=== PATIENT | female | born 2000 | race Caucasian/White ===

== ENCOUNTER 2020-04-29 18:30 | Emergency (ER) | payer BC ==
[2020-04-29] MEDS ORDERED: METOCLOPRAMIDE HCL INJ/PF 10 MG/2 ML SDV IV ONE (19:11)
[2020-04-29] MEDS ORDERED: DIPHENHYDRAMINE HCL 50 MG/ML VIAL IV ONE (19:12)
[2020-04-29] MEDS ORDERED: NORMAL SALINE 1000 ML 1,000 ML IV ONE (19:12)
--- NOTE | 2020-04-29 19:13 | ER Document Report ---
ED Medical Screen (RME) - General Chief Complaint: Nausea/Vomiting Stated Complaint: NAUSEA/DIZZYNESS/VOMITING/HEADACHE Time Seen by Provider: 04/29/20 19:03 - HPI Notes: 04/29/20 19:07 Patient is a 19-year-old female with past medical history of asthma here with complaint of nausea and vomiting. Reports her symptoms started a few days ago with associated loss of appetite, lightheadedness, fatigue, and malaise. She is sexually active and does not use any form of control. Last menstrual period was 1 month ago, they are generally pretty regular but she does not keep close track of her cycles. Denies any fever, cough, sore throat, vaginal bleeding, urinary symptoms. Abdomen is nontender to palpation on brief medical screening exam. I performed a brief medical screening exam on the patient determined that the patient needs further evaluation and management by main side provider. I have placed initial orders to help expedite care. - Related Data Allergies/Adverse Reactions: No Known Allergies Allergy (Unverified 04/29/20 18:59) Past Medical History - Social History Frequency of alcohol use: None Drug Abuse: None Physical Exam - Vital signs Vitals: Temp Pulse Resp BP Pulse Ox 98.3 F 86 18 123/83 99 04/29/20 18:36 04/29/20 18:36 04/29/20 18:36 04/29/20 18:36 04/29/20 18:36 Course - Vital Signs Vital signs: Temp Pulse Resp BP Pulse Ox 98.3 F 86 18 123/83 99 04/29/20 18:36 04/29/20 18:36 04/29/20 18:36 04/29/20 18:36 04/29/20 18:36
[2020-04-29 19:36] LABS: ABSOLUTE BASOPHILS # (AUTO) 0.2 10^3/uL (0.0-0.2); ABSOLUTE EOSINOPHILS # (AUTO) 0.7 10^3/uL (0.0-0.6); ABSOLUTE LYMPHOCYTES (AUTO) 2.3 10^3/uL (0.5-4.7); ABSOLUTE MONOCYTES (AUTO) 0.6 10^3/uL (0.1-1.4); ABSOLUTE NEUT (AUTO) 10.9 10^3/uL (1.7-8.2); BASOPHILS % (AUTO) 1.2 % (0-2); EOSINOPHILS % (AUTO) 4.9 % (0-6); HEMATOCRIT 42.3 % (36.0-47.0); HEMOGLOBIN 15.1 g/dL (12.0-15.5); LYMPHOCYTES % (AUTO) 15.4 % (13-45); MEAN CORPUSCULAR HEMOGLOBIN 29.4 pg (27.0-33.4); MEAN CORPUSCULAR HGB CONC 35.6 g/dL (32.0-36.0); MEAN CORPUSCULAR VOLUME 83 fl (80-97); MONOCYTES % (AUTO) 4.3 % (3-13); PLATELET COUNT 349 10^3/uL (150-450); RED BLOOD COUNT 5.13 10^6/uL (3.72-5.28); RED CELL DISTRIBUTION WIDTH 12.7 % (11.5-14.0); SEGMENTED NEUTROPHILS % (AUTO) 74.2 % (42-78); TOTAL CELLS COUNTED % (AUTO) 100 %; WHITE BLOOD COUNT 14.7 10^3/uL (4.0-10.5)
[2020-04-29 19:44] LABS: APPEARANCE,URINE CLEAR; BILIRUBIN,URINE NEGATIVE (NEGATIVE); COLOR,URINE STRAW; GLUCOSE, URINE NEGATIVE (NEGATIVE); KETONES,URINE NEGATIVE (NEGATIVE); PROTEIN,URINE NEGATIVE (NEGATIVE); URINE SPECIFIC GRAVITY 1.005; UROBILINOGEN,URINE NEGATIVE mg/dL (<2.0)
[2020-04-29 19:49] LABS: ALBUMIN 4.9 g/dL (3.5-5.0); ALKALINE PHOSPHATASE 85 U/L (38-126); ANION GAP 13 (5-19); ASPARTATE AMINO TRANSFERASE 25 U/L (14-36); BILIRUBIN,TOTAL 0.9 mg/dL (0.2-1.3); BLOOD UREA NITROGEN 9 mg/dL (7-20); CARBON DIOXIDE 26 mmol/L (22-30); CHLORIDE 100 mmol/L (98-107); GLUCOSE 87 mg/dL (75-110); POTASSIUM 4.4 mmol/L (3.6-5.0); TOTAL PROTEIN 8.1 g/dL (6.3-8.2)
--- NOTE | 2020-04-29 23:22 | ER Document Report ---
ED General - General Chief Complaint: Nausea/Vomiting Stated Complaint: NAUSEA/DIZZYNESS/VOMITING/HEADACHE Time Seen by Provider: 04/29/20 19:03 Notes: Patient is a 19-year-old female that comes emergency department for chief complaint of intermittent headaches, nausea, vomiting, and symptoms are also worse after eating. She states she has been having all of these symptoms for the past several days. She denies any abdominal pain, she denies abdominal pain with eating she is does states she gets nauseated after she eats. She does admit to tightness in her upper neck with the intermittent headaches. She denies head injury, neck injury, focal numbness or weakness, current headache, fever/chills. She states that she was tested for COVID-19 at work because "all of the employees were tested", she denies any COVID-19 symptoms or exposures. She has a history of asthma and is treated for this, she takes regular ibuprofen and Excedrin for her headaches, she denies medications otherwise. LMP within the past month. She is sexually active with her significant other, denies vaginal bleeding or discharge, dysuria, flank pain. - Related Data Allergies/Adverse Reactions: No Known Allergies Allergy (Unverified 04/29/20 18:59) Past Medical History - General Information source: Patient - Social History Smoking Status: Never Smoker Frequency of alcohol use: None Drug Abuse: None Lives with: Family Family History: Reviewed & Not Pertinent Patient has homicidal ideation: No Surgical Hx: Negative - Immunizations Immunizations up to date: Yes Hx Diphtheria, Pertussis, Tetanus Vaccination: Yes Review of Systems - Review of Systems Constitutional: See HPI EENT: No symptoms reported Cardiovascular: No symptoms reported Respiratory: No symptoms reported Gastrointestinal: See HPI Genitourinary: No symptoms reported Female Genitourinary: No symptoms reported Musculoskeletal: No symptoms reported Skin: No symptoms reported Hematologic/Lymphatic: No symptoms reported Neurological/Psychological: See HPI Physical Exam - Vital signs Vitals: Temp Pulse Resp BP Pulse Ox 98.3 F 86 18 123/83 99 04/29/20 18:36 04/29/20 18:36 04/29/20 18:36 04/29/20 18:36 04/29/20 18:36 - Notes Notes: GENERAL: Alert, interacts well. No acute distress. HEAD: Normocephalic, atraumatic. EYES: Pupils equal, round, and reactive to light. Extraocular movements intact. ENT: Oral mucosa moist, tongue midline. Oropharynx unremarkable. Airway patent. NECK: Full range of motion. Supple. Trachea midline. No lymphadenopathy. LUNGS: Clear to auscultation bilaterally, no wheezes, rales, or rhonchi. No respiratory distress. Non-tender chest wall. HEART: Regular rate and rhythm. No murmur ABDOMEN: Soft, non-tender. Non-distended. Bowel sounds present in all 4 quadrants. GENITOURINARY: Deferred EXTREMITIES: Moves all 4 extremities spontaneously. No edema, normal radial and dorsalis pedis pulses bilaterally. No cyanosis. BACK: There is some tenderness in the paracervical musculature bilaterally and worse on the left extending into the trapezius muscle. No cervical, thoracic, lumbar midline tenderness. No saddle anesthesia, normal distal neurovascular exam. Moves all extremities in full range of motion. NEUROLOGICAL: Alert and oriented x3. Normal speech. Cranial nerves II through XII grossly intact. Strength 5/5 in all extremities. PSYCH: Normal affect, normal mood. SKIN: Warm, dry, normal turgor. No rashes or lesions noted. Course - Re-evaluation Re-evalutation: Patient is alert and well-appearing on my exam. She is conversational, does not have a current headache, does not have any abdominal pain on her exam, and has unremarkable vital signs. CBC shows mild leukocytosis with elevation of both neutrophils and eosinophils, no shift, no bandemia. Chemistry unremarkable, lipase is not elevated, urinalysis unremarkable, test is negative. Patient is already asking to go home on my evaluation. She does have some tightness in her paracervical musculature, I suspect she is having some component of tension headaches, also suspect gastritis based on her reported symptoms. Especially since nausea and vomiting symptoms are worse after eating and her exam does not suggest acute cholecystitis or other acute abdominal etiology. We discussed treatment options, patient will be treated for both headaches and gastritis, discussed primary care follow-up and return precautions. Patient states appreciation and agreement. - Vital Signs Vital signs: Temp Pulse Resp BP Pulse Ox 98 F 75 15 119/84 99 04/29/20 23:40 04/29/20 23:40 04/29/20 23:40 04/29/20 23:40 04/29/20 23:40 - Laboratory Result Diagrams: 04/29/20 19:20 04/29/20 19:20 Laboratory results interpreted by me: 04/29/20 19:20 WBC 14.7 H Absolute Neuts (auto) 10.9 H Absolute Eos (auto) 0.7 H Discharge - Discharge Clinical Impression: Frequent headaches Vomiting Qualifiers: Vomiting type: unspecified Vomiting Intractability: non-intractable Nausea presence: unspecified Qualified Code(s): R11.10 - Vomiting, unspecified Condition: Stable Disposition: HOME, SELF-CARE Additional Instructions: Your lab tests do not show any concerning findings. Based on your symptoms after eating and your laboratory work-up along with your exam I suspect that you have gastritis, inflammation of the upper gastrointestinal tract. I recommend the Carafate and Pepcid for the next several days as prescribed. Take Zofran if needed for nausea. Start with bland food. Avoid caffeine, NSAIDs, alcohol, smoking, spicy food. This should go away with time. Follow-up with primary care for additional management this. You can take Tylenol for pain, use Excedrin or ibuprofen with care and only take with food if absolutely needed. Your evaluation does show some paracervical muscle tension (muscle tension and spasm in your neck), this is probably contributing to tension headaches. I do recommend the muscle relaxer as prescribed, heat to the area, gentle massage. Return if you worsen including severe worsening headache, uncontrolled vomiting, fever, developing abdominal pain, or any other concerning symptoms. Prescriptions: Sucralfate [Carafate 1 gm Tablet] 1 gm PO QID #20 tablet Famotidine [Pepcid 20 mg Tablet] 20 mg PO BID #20 tablet Methocarbamol [Robaxin-750] 750 mg PO QID PRN #20 tablet PRN Reason: Ondansetron [Zofran Odt 4 mg Tablet] 1 - 2 tab PO Q4H PRN #15 tab.rapdis PRN Reason: For Nausea/Vomiting
[2020-04-29 23:40] VITALS: BP 119/84
== END 2020-04-29 23:40 | disposition home or self-care (01) ==
LOC: ER 18:30
DX: R51.9 Headache, unspecified (principal); R11.2 Nausea with vomiting, unspecified; J45.909 Unspecified asthma, uncomplicated
CPT/HCPCS: 36415; 80053; 81001; 81025; 83690; 85025; 99283

== ENCOUNTER 2020-07-15 13:56 | Emergency (ER) | payer BC, OTHER ==
--- NOTE | 2020-07-15 15:48 | ER Document Report ---
ED Medical Screen (RME) - General Chief Complaint: Vaginal Bleeding Stated Complaint: VAGINAL BLEEDING Time Seen by Provider: 07/15/20 15:01 Notes: HPI: 19-year-old female presenting to the emergency department complaining of vaginal bleeding that began today. Similar to menstrual cycle. Had a positive test yesterday. Her last menstrual cycle was approximately 5 weeks ago. Reports a pelvic cramping PHYSICAL EXAMINATION: Mild tenderness across the pelvis on palpation exam deferred in triage I have greeted and performed a rapid initial assessment of this patient. A comprehensive ED assessment and evaluation of the patient, analysis of test results and completion of medical decision making process will be conducted by an additional ED providers. Please note that clinical decision making for this patient was made during the 2019 pandemic of novel coronavirus which caused a significant strain on the healthcare system including at this particular facility. Criteria for admission discharge and level of care decisions as well as treatment decisions have necessarily changed - Related Data Allergies/Adverse Reactions: No Known Allergies Allergy (Unverified 04/29/20 18:59) Past Medical History - Immunizations Immunizations up to date: Yes Hx Diphtheria, Pertussis, Tetanus Vaccination: Yes Physical Exam - Vital signs Vitals: Temp Pulse Resp BP Pulse Ox 98.1 F 81 16 122/82 98 07/15/20 14:14 07/15/20 14:14 07/15/20 14:14 07/15/20 14:14 07/15/20 14:14 Course - Vital Signs Vital signs: Temp Pulse Resp BP Pulse Ox 98.1 F 81 16 122/82 98 07/15/20 14:14 07/15/20 14:14 07/15/20 14:14 07/15/20 14:14 07/15/20 14:14
[2020-07-15 16:13] LABS: ABSOLUTE BASOPHILS # (AUTO) 0.1 10^3/uL (0.0-0.2); ABSOLUTE EOSINOPHILS # (AUTO) 0.7 10^3/uL (0.0-0.6); ABSOLUTE LYMPHOCYTES (AUTO) 1.5 10^3/uL (0.5-4.7); ABSOLUTE MONOCYTES (AUTO) 0.5 10^3/uL (0.1-1.4); ABSOLUTE NEUT (AUTO) 8.9 10^3/uL (1.7-8.2); BASOPHILS % (AUTO) 0.9 % (0-2); EOSINOPHILS % (AUTO) 5.7 % (0-6); HEMATOCRIT 43.7 % (36.0-47.0); HEMOGLOBIN 15.1 g/dL (12.0-15.5); LYMPHOCYTES % (AUTO) 12.9 % (13-45); MEAN CORPUSCULAR HEMOGLOBIN 28.2 pg (27.0-33.4); MEAN CORPUSCULAR HGB CONC 34.6 g/dL (32.0-36.0); MEAN CORPUSCULAR VOLUME 81 fl (80-97); MONOCYTES % (AUTO) 3.9 % (3-13); PLATELET COUNT 351 10^3/uL (150-450); RED BLOOD COUNT 5.37 10^6/uL (3.72-5.28); RED CELL DISTRIBUTION WIDTH 12.8 % (11.5-14.0); SEGMENTED NEUTROPHILS % (AUTO) 76.6 % (42-78); TOTAL CELLS COUNTED % (AUTO) 100 %; WHITE BLOOD COUNT 11.6 10^3/uL (4.0-10.5)
[2020-07-15 16:24] LABS: APPEARANCE,URINE CLEAR; BILIRUBIN,URINE NEGATIVE (NEGATIVE); COLOR,URINE YELLOW; GLUCOSE, URINE NEGATIVE (NEGATIVE); KETONES,URINE NEGATIVE (NEGATIVE); LEUKOCYTE ESTERASE,URINE TRACE (NEGATIVE); NITRITE,URINE NEGATIVE (NEGATIVE); PROTEIN,URINE NEGATIVE (NEGATIVE); URINE SPECIFIC GRAVITY 1.011; UROBILINOGEN,URINE NEGATIVE mg/dL (<2.0)
[2020-07-15 16:31] LABS: ALBUMIN 4.6 g/dL (3.5-5.0); ALKALINE PHOSPHATASE 83 U/L (38-126); ANION GAP 7 (5-19); ASPARTATE AMINO TRANSFERASE 31 U/L (14-36); BILIRUBIN,DIRECT 0.1 mg/dL (0.0-0.4); BILIRUBIN,TOTAL 0.9 mg/dL (0.2-1.3); BLOOD UREA NITROGEN 9 mg/dL (7-20); CALCIUM 9.6 mg/dL (8.4-10.2); CARBON DIOXIDE 28 mmol/L (22-30); CHLORIDE 102 mmol/L (98-107); GLUCOSE 80 mg/dL (75-110); POTASSIUM 4.6 mmol/L (3.6-5.0); TOTAL PROTEIN 7.9 g/dL (6.3-8.2)
--- NOTE | 2020-07-15 20:21 | ER Document Report ---
ED GI/ - General Chief Complaint: Vaginal Bleeding Stated Complaint: VAGINAL BLEEDING Time Seen by Provider: 07/15/20 15:01 Notes: Patient is a 19-year-old female who comes emergency department for chief complaint of vaginal bleeding that started earlier today. She reports bleeding through 3 pads this afternoon with passage of clots. She reports associated cramping but no severe pain. She denies flank pain, dizziness, fever/chills. She does report vomiting 2-3 times over the past couple of days. LMP was 5 weeks ago, she has positive home test. Patient denies any daily medications, surgeries, or past medical history. - Related Data Allergies/Adverse Reactions: No Known Allergies Allergy (Unverified 04/29/20 18:59) Past Medical History - General Information source: Patient - Social History Smoking Status: Never Smoker Frequency of alcohol use: None Drug Abuse: None Lives with: Spouse/Significant other Family History: Reviewed & Not Pertinent - Medical History Medical History: Negative Surgical Hx: Negative - Immunizations Immunizations up to date: Yes Hx Diphtheria, Pertussis, Tetanus Vaccination: Yes Review of Systems - Review of Systems Constitutional: No symptoms reported EENT: No symptoms reported Cardiovascular: No symptoms reported Respiratory: No symptoms reported Gastrointestinal: See HPI Genitourinary: No symptoms reported Female Genitourinary: See HPI Musculoskeletal: No symptoms reported Skin: No symptoms reported Hematologic/Lymphatic: No symptoms reported Neurological/Psychological: No symptoms reported Physical Exam - Vital signs Vitals: Temp Pulse Resp BP Pulse Ox 98.1 F 81 16 122/82 98 07/15/20 14:14 07/15/20 14:14 07/15/20 14:14 07/15/20 14:14 07/15/20 14:14 - Notes Notes: GENERAL: Alert, interacts well. No acute distress. HEAD: Normocephalic, atraumatic. EYES: Pupils equal, round, and reactive to light. Extraocular movements intact. ENT: Oral mucosa moist, tongue midline. Oropharynx unremarkable. Airway patent. LUNGS: Clear to auscultation bilaterally, no wheezes, rales, or rhonchi. No respiratory distress. Non-tender chest wall. HEART: Regular rate and rhythm. No murmur ABDOMEN: Soft, non-tender. Non-distended. Bowel sounds present in all 4 quadrants. GENITOURINARY: Deferred EXTREMITIES: Moves all 4 extremities spontaneously. No edema, normal radial and dorsalis pedis pulses bilaterally. No cyanosis. BACK: no cervical, thoracic, lumbar midline tenderness. No saddle anesthesia, normal distal neurovascular exam. NEUROLOGICAL: Alert and oriented x3. Normal speech. Cranial nerves II through XII grossly intact. Strength 5/5 in all extremities. PSYCH: Normal affect, normal mood. SKIN: Warm, dry, normal turgor. No rashes or lesions noted. Course - Re-evaluation Re-evalutation: Patient is smiling, well-appearing, has a soft benign abdomen, has no current complaints. Vital signs unremarkable. CBC does not show low hemoglobin or concerning findings. RhoGam is not indicated. Ultrasound shows possible early intrauterine with no acute findings. Discussed with patient in detail. Patient states she already has a close follow-up with [facility] REPRES[facility]ATIVE scheduled in a few days, she was given her information, she will have her hCG repeated in 3 days, discussed return precautions with patient in detail. Patient will also be provided with Reglan for nausea and vomiting and first trimester after we discussed options. Patient and significant other state appreciation and agreement. Stable and well-appearing at time of discharge. - Vital Signs Vital signs: Temp Pulse Resp BP Pulse Ox 98.3 F 74 14 142/81 H 100 07/15/20 21:02 07/15/20 21:02 07/15/20 21:02 07/15/20 21:02 07/15/20 21:02 - Laboratory Results Result Diagrams: 07/15/20 15:34 07/15/20 15:34 Laboratory Results Interpreted: 07/15/20 07/15/20 07/15/20 15:34 15:34 15:34 WBC 11.6 H RBC 5.37 H Lymph % (Auto) 12.9 L Absolute Neuts (auto) 8.9 H Absolute Eos (auto) 0.7 H Beta HCG, Quant 907.46 H Urine Blood LARGE H Ur Leukocyte Esterase TRACE H Critical Laboratory Results Reviewed: No Critical Results - Radiology Results Critical Radiology Results Reviewed: No Critical Results Discharge - Discharge Clinical Impression: Vaginal bleeding affecting early Condition: Stable Disposition: HOME, SELF-CARE Additional Instructions: It appears that there is an early 5-week 2-day developing the uterus. No other concerning findings are seen at this time. Recommendation is pelvic rest (avoid any heavy lifting, intense physical exercise, sexual intercourse, until cleared by [facility] REPRESENTATIVE). I also recommend that you perform a 3-day follow-up for repeat testing of your hCG hormone to monitor the as we discussed. Take the nausea medication if needed. You can also take OTC Benadryl along with the medication. Return if you worsen including severe pain, very heavy bleeding (bleeding through 1-2 pads an hour, dizziness, passing out, etc.), or any other concerning or worsening symptoms. Prescriptions: Metoclopramide HCl [Reglan] 5 mg PO ASDIR PRN #30 tablet PRN Reason:
--- NOTE | 2020-07-15 20:39 | RADIOLOGY REPORT (SQ) ---
EXAM DESCRIPTION: U/S OB TRANSVAG W/DOPPLER RadLex: US TRANSVAGINAL CLINICAL HISTORY: 19 years Female; preg vag bleed; TECHNIQUE: Endovaginal pelvic ultrasound was performed. COMPARISON: None. FINDINGS: Uterus: 7.5 x 3.3 x 3.9 cm. Cervix 1.6 cm long There is a cystic structure 5 mm diameter in the mid uterine cavity. No yolk sac or pole is identified. If this is a gestational sac, EGA is 5 weeks 2 days. Right ovary: 1.4 x 0.8 x 1.6 cm. Normal vascular flow on Doppler. Left ovary: Not visualized. Trace amount of fluid in the cul-de-sac. No adnexal masses. IMPRESSION: 1. Small cystic structure, possibly an early gestational sac at 5 weeks 2 days. No pole or yolk sac is identified. 2. Consider correlation with beta-hCG and 2 week follow-up exam.
[2020-07-15 21:06] VITALS: BP 142/81
== END 2020-07-15 21:06 | disposition home or self-care (01) ==
LOC: ER 13:56
DX: O20.9 Hemorrhage in early pregnancy, unspecified (principal); O26.891 Other specified pregnancy related conditions, first trimester; R25.2 Cramp and spasm; O21.9 Vomiting of pregnancy, unspecified; Z3A.01 Less than 8 weeks gestation of pregnancy
CPT/HCPCS: 36415; 76817; 80053; 81001; 84702; 85025; 86900; 86901; 93976; 99284